=== PATIENT | female | born 1950 | race Caucasian/White ===

== ENCOUNTER → 2016-11-29 | Outpatient (CLI) | payer OTHER, BC ==
[~2016-11-29] MED LIST: ACET-1256 PO; ACET-24 PO; ACYC1CAP8 PO; ASCO10003 PO; ASPEC325 PO; GLUCTAB18 PO; MECL-91 PO; MECL1TAB40 PO; MULT-506 PO; NAPR1TAB9 PO; TRAM-10 PO
[2016-11-29 11:41] LABS: BLOOD UREA NITROGEN 14 mg/dl (7-18); BUN/CREATININE RATIO 15.9 (10-20); CALCIUM 9.4 mg/dl (8.5-10.1); CARBON DIOXIDE 31 mmol/L (21-32); CHLORIDE 104 mmol/L (98-107); CHOLESTEROL 209 mg/dl (0-200); CREATININE 0.88 mg/dl (0.60-1.20); GLUCOSE 112 mg/dl (70-99); POTASSIUM 4.3 mmol/L (3.5-5.1); SODIUM 139 mmol/L (136-145); TRIGLYCERIDES 140 mg/dl (0-150); VERY LOW DENSITY LIPOPROT CALC 28 mg/dl
[2016-11-29 11:44] LABS: CHOLESTEROL/HDL RATIO 3.7; HDL CHOLESTEROL 57 mg/dl
[2016-11-29 12:01] LABS: ESTIMATED AVERAGE GLUCOSE 134 mg/dl; HA1C FLAG Normal (Normal)
== END | disposition home or self-care (01) ==
LOC: C.LAB 10:15
PROVIDERS: ATTEND Internal Medicine
DX: R73.9 Hyperglycemia, unspecified (principal); Z00.00 Encounter for general adult medical examination without abnormal findings

== ENCOUNTER → 2016-11-30 | Outpatient (CLI) | payer OTHER, BC | END | disposition home or self-care (01) | LOC: C.PAPS 12:33 | PROVIDERS: ATTEND Internal Medicine | DX: Z12.4 Encounter for screening for malignant neoplasm of cervix (principal); R87.616 Satisfactory cervical smear but lacking transformation zone; Z78.0 Asymptomatic menopausal state ==

== ENCOUNTER → 2016-12-28 | Outpatient (CLI) | payer OTHER, BC ==
[~2016-12-28] VITALS: Ht 152.4 cm; Wt 85.0 kg
[~2016-12-28] MED LIST changes: +ACYC-57 PO; -ACYC1CAP8 PO; +RXC5 PO
[2016-12-28 11:17] VITALS: Ht 152.4 cm; Wt 85.0 kg
--- NOTE | 2016-12-28 11:45 | PAT Medication Instructions ---
Service Date Dec 28, 2016. Current Home Medication List Meclizine HCl (Meclizine 25), 25 MG PO TID PRN for RN Naproxen (Aleve), 440 MG PO PRN Medication Instructions For Your Scheduled Surgery - Hold the following medications the morning of surgery: Naproxen (Aleve), 440 MG PO PRN (otherwise okay to continue per surgeon) - Take the following medications the morning of surgery with a sip of water OTHERWISE NOTHING TO EAT OR DRINK AFTER MIDNIGHT: Meclizine HCl (Meclizine 25), 25 MG PO TID PRN - Take the following medications as scheduled the night before surgery: Meclizine HCl (Meclizine 25), 25 MG PO TID PRN Naproxen (Aleve), 440 MG PO PRN If you have any questions please call us at [phone] or [phone] or [phone]
--- NOTE | 2016-12-28 12:13 | DIAGNOSTIC IMAGING REPORT ---
CHEST 2 VIEWS ROUTINE CLINICAL HISTORY: Preoperative chest COMPARISON STUDY: 03/11/2009 FINDINGS: The cardiac and mediastinal contours are normal. There is no evidence of focal pulmonary consolidation. There is no evidence of failure. No pleural effusions are visualized.[ IMPRESSION: No active disease in the chest. Electronically signed by: Satnam Valdez M.D. 12/28/2016 12:12 PM Dictated Date/Time: 12/28/2016 12:12 PM
[2016-12-28 12:29] LABS: PARTIAL THROMBOPLASTIN RATIO 0.8; PROTHROMBIN TIME (PATIENT) 10.8 SECONDS (9.0-12.0)
[2016-12-28 12:39] LABS: HEMATOCRIT 37.1 % (37-47); MEAN CELL VOLUME 86.9 fL (80-100); MEAN CORPUSCULAR HEMOGLOBIN 28.6 pg (25-34); MEAN CORPUSCULAR HGB CONC 32.9 g/dl (32-36); PLATELET COUNT 51 K/uL (130-400); RED BLOOD COUNT 4.27 M/uL (4.2-5.4); WHITE BLOOD COUNT 2.34 K/uL (4.8-10.8)
[2016-12-28 12:46] LABS: COMPLETE YES; EOS % 0.9 %; LARGE PLATELETS 1+; LYMPH % 71.8 %; LYMPH ABS # 1.68 K/uL (1.2-3.4); MONO % 0.9 %; NEUT % 26.4 %; PLT ESTIMATE DECREASED
== END | disposition home or self-care (01) ==
LOC: C.LAB 08:00 → EDSTATUS 01-04 12:45
PROVIDERS: ATTEND Orthopaedic Surgery Sports Medicine
DX: Z01.818 Encounter for other preprocedural examination (principal); M17.9 Osteoarthritis of knee, unspecified

== ENCOUNTER → 2016-12-29 | Outpatient (CLI) | payer OTHER, BC ==
[~2016-12-29] MED LIST changes: -ACYC-57 PO; +ACYC1CAP8 PO; -ASCO10003 PO; -GLUCTAB18 PO; -MECL1TAB40 PO; -MULT-506 PO; -RXC5 PO
[2016-12-29 12:45] LABS: ALT/SGPT 21 U/L (12-78); BLOOD UREA NITROGEN 16 mg/dl (7-18); BUN/CREATININE RATIO 18.8 (10-20); CALCIUM 9.7 mg/dl (8.5-10.1); CARBON DIOXIDE 28 mmol/L (21-32); CHLORIDE 109 mmol/L (98-107); CREATININE 0.84 mg/dl (0.60-1.20); GLUCOSE 109 mg/dl (70-99); POTASSIUM 4.1 mmol/L (3.5-5.1); SODIUM 143 mmol/L (136-145)
[2016-12-29 12:48] LABS: ALB/GLOB RATIO 1.2 (0.9-2); ALKALINE PHOSPHATASE 68 U/L (45-117); AST/SGOT 13 U/L (15-37); HEMATOCRIT 36.5 % (37-47); MEAN CELL VOLUME 85.7 fL (80-100); MEAN CORPUSCULAR HEMOGLOBIN 28.4 pg (25-34); MEAN CORPUSCULAR HGB CONC 33.2 g/dl (32-36); MEAN PLATELET VOLUME 9.9 fL (7.4-10.4); PLATELET COUNT 52 K/uL (130-400); RED BLOOD COUNT 4.26 M/uL (4.2-5.4); WHITE BLOOD COUNT 2.59 K/uL (4.8-10.8)
[2016-12-29 13:42] LABS: BASO % 0.4 %; BASO ABS # 0.01 K/uL (0-0.2); COMPLETE YES; EOS % 0.4 %; LYMPH % 76.1 %; LYMPH ABS # 1.97 K/uL (1.2-3.4); MONO % 0.8 %; NEUT % 22.3 %
[2016-12-30 18:03] LABS: ALBUMIN 4.5 G/DL (3.8-4.8); GAMMA GLOBULIN 1.1 G/DL (0.8-1.7); TOTAL PROTEIN 7.3 G/DL (6.2-8.3)
[2017-01-03 05:48] LABS: NEO FLOW LYMPH/LEUK STND SEE NEO MISC
== END | disposition home or self-care (01) ==
LOC: C.LAB 11:04
PROVIDERS: ATTEND Internal Medicine
DX: D72.819 Decreased white blood cell count, unspecified (principal); D69.6 Thrombocytopenia, unspecified

== ENCOUNTER → 2017-01-07 | Outpatient (CLI) | payer OTHER, BC ==
[~2017-01-07] MED LIST changes: +ACYC-57 PO; -ACYC1CAP8 PO; +OPTIRAY 320 IV PRN; +RXC5 PO
--- NOTE | 2017-01-07 16:44 | DIAGNOSTIC IMAGING REPORT ---
CT OF THE CHEST WITH IV CONTRAST CLINICAL HISTORY: Hairy cell leukemia. Follow-up study. COMPARISON STUDY: Chest x-ray dated 12/28/2016 TECHNIQUE: Following the IV administration of 120 mL of Optiray-320, CT of the thorax was performed from the thoracic inlet to the lung bases. Images are reviewed in the axial, sagittal, and coronal planes. IV contrast was administered without complication. CT DOSE: 1126.81 mGycm FINDINGS: Thyroid: Imaged portions of the thyroid gland are normal in appearance. Thoracic aorta: The thoracic aorta is normal in course and caliber, noting standard 3-vessel arch anatomy. No aneurysm or dissection is seen. Pulmonary vasculature: The pulmonary trunk is normal in caliber. There are no central filling defects identified to suggest pulmonary embolus. Note that this examination was not protocoled for the evaluation of pulmonary emboli. HEART: The heart is normal in size and configuration, without pericardial effusion. Lungs and pleural spaces: There are no pleural effusions. There is no focal pulmonary consolidation. There is a 3 mm solid left lower lobe pulmonary nodule as visualized in image #[id number]. Mediastinum: There is no mediastinal lymphadenopathy. Marian: There is no evidence of pathologic hilar adenopathy Axilla: There is no evidence of pathologic axillary lymphadenopathy Upper abdomen: Spleen is enlarged. Skeletal structures: There are no lytic or blastic osseous lesions. IMPRESSION: 1. No evidence of pathologic adenopathy 2. Splenomegaly 3. 3 mm solid left lower lobe pulmonary nodule. Follow-up per Fleischner criteria is recommended. Please refer to below summary of Fleischner criteria recommendations for follow-up of incidental CT nodules (Naeem Howard, Guidelines for management of small pulmonary nodules detected on CT scans: A statement from the Fleischner Society, Radiology 237: [phone].) SOLID NODULES Solitary nodule size: <6 mm * low risk patients: no follow-up needed * high risk patients: optional CT at 12 months Solitary nodule size: 6-8 mm * low risk patients: follow-up at 6-12 months, then consider further follow-up at 18-24 months * high risk patients: initial follow-up CT at 6-12 months and then at 18-24 months if no change Solitary nodule size: >8 mm * either low or high risk patients - consider follow-up CT at 3 months, and/or CT-PET, and/or biopsy Multiple nodules size: <6 mm * low risk patients: no routine follow-up * high risk patients: optional CT at 12 months Multiple nodules size: 6-8 mm * low risk patients: follow-up at 3-6 months, then consider further follow-up at 18-24 months * high risk patients: follow-up at 3-6 months, then at 18-24 months if no change Multiple nodules size: >8 mm * low risk patients: follow-up at 3-6 months, then consider further follow-up at 18-24 months * high risk patients: follow-up at 3-6 months, then at 18-24 months if no change Note: newly detected indeterminate nodule in persons 35 years of age or older. * low risk patients: minimal or absent history of smoking and/or other known risk factors * high risk patients: history of smoking or of other known risk factors (e.g. first degree relative with lung cancer, or exposure to asbestos, radon, uranium) * if a nodule up to 8 mm is partly solid or is ground glass further follow-up is required after 24 months to exclude possible slow growing adenocarcinoma (GRACIA) SUBSOLID NODULES Solitary pure ground-glass nodule * nodule size <6 mm - no CT follow-up required * nodule size >=6 mm - follow-up CT at 6-12 months, then every 2 years until 5 years Solitary part-solid nodule * nodule size <6 mm - no CT follow-up required * nodule size >=6 mm - follow-up CT at 3-6 months. If unchanged, and solid component remains <6 mm, then annual follow-up for 5 years Multiple subsolid nodules * nodule size <6 mm - follow-up CT at 3-6 months, consider further follow-up at 2 and 4 years if stable * nodule size >=6 mm - follow-up CT at 3-6 months, subsequent management based on the most suspicious nodule(s) Electronically signed by: Satnam Valdez M.D. 01/07/2017 4:42 PM Dictated Date/Time: 01/07/2017 4:36 PM
[2017-01-07 16:48] LABS: HEMATOCRIT 37.2 % (37-47); MEAN CELL VOLUME 85.5 fL (80-100); MEAN CORPUSCULAR HEMOGLOBIN 28.3 pg (25-34); MEAN CORPUSCULAR HGB CONC 33.1 g/dl (32-36); PLATELET COUNT 52 K/uL (130-400); RED BLOOD COUNT 4.35 M/uL (4.2-5.4); WHITE BLOOD COUNT 3.03 K/uL (4.8-10.8)
--- NOTE | 2017-01-07 16:52 | DIAGNOSTIC IMAGING REPORT ---
ABDOMEN AND PELVIS CT WITH IV AND ORAL CONTRAST CT DOSE: HISTORY: Leukemia. Follow-up. TECHNIQUE: Multiaxial CT images of the abdomen and pelvis were performed following the use of intravenous and oral contrast. COMPARISON STUDY: None. FINDINGS: The lung bases are clear. No suspicious lytic or blastic osseous lesions. Small hiatus hernia. Hepatic steatosis. Cholecystectomy. The pancreas, adrenal glands, and kidneys are unremarkable. There are few punctate calcified granuloma seen within the spleen. The spleen is enlarged measuring 20 cm in length. No retroperitoneal or mesenteric lymphadenopathy. The bladder, uterus, and ovaries are unremarkable. Colonic diverticulosis. No bowel wall thickening or obstruction. Normal appendix. IMPRESSION: 1. Splenomegaly measuring 20 cm in length. 2. No lymphadenopathy within the abdomen or pelvis. Electronically signed by: Rip Cha M.D. 01/07/2017 4:50 PM Dictated Date/Time: 01/07/2017 4:45 PM
[2017-01-07 18:10] LABS: COMPLETE YES; EOSINOPHIL % 0.9 %; LYMPHOCYTE % 26.3 %; NEUTROPHILS % 24.6 %; VARIANT LYM ABS # 1.41 K/uL; VARIANT LYMPHOCYTE % 46.4 %
== END | disposition home or self-care (01) ==
LOC: C.CTS 15:38
PROVIDERS: ATTEND Internal Medicine Hematology
DX: C91.40 Hairy cell leukemia not having achieved remission (principal); Z01.818 Encounter for other preprocedural examination; R16.1 Splenomegaly, not elsewhere classified; R91.1 Solitary pulmonary nodule

== ENCOUNTER → 2017-03-24 | Outpatient (CLI) | payer OTHER, BC ==
[~2017-03-24] MED LIST changes: -OPTIRAY 320 IV PRN
--- NOTE | 2017-03-24 13:39 | MAMMOGRAPHY REPORT ---
BILATERAL DIGITAL SCREENING MAMMOGRAM WITH CAD: 03/24/2017 CLINICAL HISTORY: Routine screening. Patient has no complaints. TECHNIQUE: Current study was also evaluated with a Computer Aided Detection (CAD) system. Bilateral CC and MLO views were obtained. COMPARISON: Comparison is made to exams dated: 03/22/2016 mammogram, 03/19/2015 mammogram, 03/18/2014 m ammogram, 03/15/2013 mammogram, 03/14/2012 mammogram, and 03/11/2011 mammogram - [facility] nter. BREAST COMPOSITION: There are scattered areas of fibroglandular density in both breasts. FINDINGS: No suspicious masses, calcifications, or areas of architectural distortion are noted in ei ther breast. There has been no significant interval change compared to prior exams. Scattered bilater al benign-appearing calcifications are not significantly changed. IMPRESSION: ACR BI-RADS CATEGORY 2: BENIGN There is no mammographic evidence of malignancy. A 1 year screening mammogram is recommended. The pa tient will receive written notification of the results. Approximately 10% of breast cancers are not detected with mammography. A negative mammographic report should not delay biopsy if a clinically suggestive mass is present. Fe Banuelos M.D. /:03/24/2017 12:39:23 Outer Diameter Technician: Alaina Marcum, [facility] letter sent: Normal 1/2 BI-RADS Code: ACR BI-RADS Category 2: Benign
== END | disposition home or self-care (01) ==
LOC: C.MAMM 10:52
PROVIDERS: ATTEND Internal Medicine
DX: Z12.31 Encounter for screening mammogram for malignant neoplasm of breast (principal)

== ENCOUNTER → 2017-04-08 | Outpatient (CLI) | payer OTHER, BC ==
[~2017-04-08] MED LIST changes: -ACYC-57 PO; +ACYC1CAP8 PO; +ATROPINE SULFATE 0.1 MG/ML 5ML SYR ONE; +DOBUTamine HCL 12.5 MG/ML 20 ML VIAL ONE; +METOPROLOL TARTRATE 1 MG/ML VIAL ONE; -RXC5 PO
--- NOTE | 2017-04-08 20:00 | DOBUTAMINE ECHO ---
*NOTICE TO RECEIVING [employer] AGENCY This information is strictly Confidential and protected under [place] law. [place] law prohibits you from making any further disclosure of this information unless further disclosure is expressly permitted by the written consent of the person to whom it pertains or is authorized by law. A general authorization for the release of medical or other information is not sufficient for this purpose. Hospital accepts no responsibility if the information is made available to any other person, INCLUDING THE PATIENT. Interpretation Summary * Name: VELMA BROWN Study Date: 04/08/2017 09:39 AM BP: 153/95 mmHg * Patient Location: [facility] HR: 92 * : 1950 (M/d/yyyy) Gender: Female Height: 62 in * Age: 66 yrs Ethnicity: [place] Weight: 185 lb * Ordering Physician: Daniel Velazquez * Referring Physician: Daniel Velazquez * Performed By: Denisa Palumbo RDCS * * Reason For Study: Exertional dyspnea * BSA: 1.8 m2 * Normal resting left ventricular systolic function. * Left ventricular diastolic dysfunction. * Normal right ventricular systolic function. * Normal chamber dimensions. * No significant valvular abnormalities. * STRESS STUDY: Normal pharmacologic stress echocardiogram. No echocardiographic or ECG evidence of myocardial ischemia having achieved heart rate adequate for diagnostic purposes. Procedure Details * DOBUTAMINE ECHO, CPT#[id number] * ECHO DOPPLER, CPT #[id number] * ECHO COLOR FLOW, CPT #[id number] * A contrast injection of Definity was performed to improve assessment of LV function. * Contrast was injected into an intravenous site in the central line. * One vial of Definity ultrasound contrast was diluted in normal saline to a total volume of 10 ml. A total of '5' ml of solution was administered during imaging. * Lot # [id number] of Definity utilized for procedure. * Expiration date MAY 20. * The attending nurse who injected the contrast agent was Yvette Rapp RN. Left Ventricle * The left ventricle is normal in size. * There is normal left ventricular wall thickness. * Ejection Fraction = 60-65%. * Left ventricular systolic function is normal. * A full diastolic examination was done with clinical findings of Class I diastolic dysfunction. * Resting wall motion: Normal. Stress wall motion: Appropriate increase in Left ventricular systolic function and decrease in cavity size. No stress induced segmental wall motion abnormalities. * The left ventricular ejection fraction increases normally with stress. The left ventricular end-systolic cavity size reduces post-stress (normal response). The left ventricular wall motion with stress is normal. Right Ventricle * The right ventricle is normal in size and function. * The right ventricular systolic function is normal as assessed by tricuspid annular plane systolic excursion (TAPSE) (normal >1.5 cm). Atria * The left atrial size is normal. * Right atrial size is normal. * No ASD detected; PFO is not assessed. Mitral Valve * The mitral valve is normal. * There is no mitral valve stenosis. * There is no mitral regurgitation noted. Tricuspid Valve * The tricuspid valve is normal. * There is no tricuspid stenosis. * No tricuspid regurgitation. Aortic Valve * The aortic valve is trileaflet. * The aortic valve opens well. * Aortic stenosis is absent. * No aortic regurgitation is present. Pulmonic Valve * The pulmonic valve is not well seen, but is grossly normal. * Pulmonic stenosis is absent. * There is no pulmonic valvular regurgitation. Great Vessels * The aortic root is normal size. Pericardium * There is no pericardial effusion. Stress Parameters * Normal baseline electrocardiogram. * The stress ECG response was normal * Arrhythmia induced during stress: frequent PVC's. * The stress portion of this study was personally supervised by the undersigned interpreting physician. * Rest heart rate was '92' BPM. * Rest blood pressure was '153/95' * Maximum heart rate achieved was 153 bpm. * Maximum heart rate was 100 % of maximum age-predicted heart rate. * Maximum blood pressure was '192/40' * Maximum Dobutamine infusion rate was '40' mcg/kg/min. * Dobutamine infusion was terminated due to achieving target heart rate * A total of 5 mg of IV Metoprolol was administered to reverse Dobutamine-induced tachycardia. * The patient did not exhibit any symptoms during drug infusion. MMode 2D Measurements and Calculations IVSd 1.1 cm LVIDd 3.9 cm LVIDs 2.5 cm LVPWd 0.95 cm IVS/LVPW 1.2 FS 34.2 % EDV(Teich) 64.7 ml ESV(Teich) 23.4 ml EF(Teich) 63.8 % EDV(cubed) 57.9 ml ESV(cubed) 16.5 ml EF(cubed) 71.5 % LV mass(C)d 127.2 grams LV mass(C)dI 68.8 grams/m\S\2 SV(Teich) 41.3 ml SI(Teich) 22.3 ml/m\S\2 SV(cubed) 41.4 ml SI(cubed) 22.4 ml/m\S\2 Ao root diam 3.2 cm Ao root area 7.9 cm\S\2 ACS 1.4 cm LA dimension 2.9 cm asc Aorta Diam 2.9 cm LA/Ao 0.90 LVOT diam 2.0 cm LVOT area 3.0 cm\S\2 LVAd ap4 20.5 cm\S\2 LVLd ap4 6.3 cm EDV(MOD-sp4) 54.3 ml EDV(sp4-el) 56.7 ml LVAs ap4 13.0 cm\S\2 LVLs ap4 6.2 cm ESV(MOD-sp4) 23.5 ml ESV(sp4-el) 23.1 ml EF(MOD-sp4) 56.8 % EF(sp4-el) 59.3 % LVAd ap2 27.4 cm\S\2 LVLd ap2 7.6 cm EDV(MOD-sp2) 81.6 ml EDV(sp2-el) 84.0 ml LVAs ap2 15.7 cm\S\2 LVLs ap2 6.1 cm ESV(MOD-sp2) 34.1 ml ESV(sp2-el) 34.6 ml EF(MOD-sp2) 58.2 % EF(sp2-el) 58.8 % LVLd %diff 16.9 % EDV(MOD-bp) 73.4 ml LVLs %diff -1.92 % ESV(MOD-bp) 27.9 ml EF(MOD-bp) 62.0 % SV(MOD-sp4) 30.8 ml SI(MOD-sp4) 16.7 ml/m\S\2 SV(MOD-sp2) 47.5 ml SI(MOD-sp2) 25.7 ml/m\S\2 SV(MOD-bp) 45.5 ml SI(MOD-bp) 24.6 ml/m\S\2 SV(sp4-el) 33.6 ml SI(sp4-el) 18.2 ml/m\S\2 SV(sp2-el) 49.4 ml SI(sp2-el) 26.7 ml/m\S\2 Doppler Measurements and Calculations MV E max betsy 63.1 cm/sec MV A max betsy 97.5 cm/sec MV E/A 0.65 MV dec time 0.20 sec Ao V2 max 133.0 cm/sec Ao max PG 7.1 mmHg Ao max PG (full) 3.0 mmHg VANITA(V,A) 2.3 cm\S\2 VANITA(V,D) 2.3 cm\S\2 LV V1 max PG 4.1 mmHg LV V1 max 100.9 cm/sec PA V2 max 114.0 cm/sec PA max PG 5.2 mmHg PA acc slope 838.0 cm/sec\S\2 PA acc time 0.08 sec PA pr(Accel) 41.0 mmHg
== END | disposition home or self-care (01) ==
LOC: C.CPL 09:11
PROVIDERS: ATTEND Internal Medicine
DX: R06.89 Other abnormalities of breathing (principal)

== ENCOUNTER 2017-06-17 05:03 | Inpatient (IN) | payer OTHER, BC ==
[2017-05-31 09:15] VITALS: BMI 36.0
--- NOTE | 2017-05-31 09:44 | PAT Medication Instructions ---
Service Date May 31, 2017. Current Home Medication List Acetaminophen (Tylenol), 1,000 MG PO BID Acyclovir (Zovirax), 400 MG PO BID Meclizine HCl (Meclizine 25), 25 MG PO TID PRN for trigonometry teacher Instructions For Your Scheduled Surgery - Take the following medications the morning of surgery with a sip of water: Acetaminophen (Tylenol), 1,000 MG PO BID Acyclovir (Zovirax), 400 MG PO BID Meclizine HCl (Meclizine 25), 25 MG PO TID PRN for RN (if needed) - Take the following medications as scheduled the night before surgery: Acetaminophen (Tylenol), 1,000 MG PO BID Acyclovir (Zovirax), 400 MG PO BID Meclizine HCl (Meclizine 25), 25 MG PO TID PRN for RN (if needed) If you have any questions please call us at [phone] or [phone] or [phone]
[2017-05-31 10:04] LABS: BASO % 0.3 %; BASO ABS # 0.01 K/uL (0-0.2); COMPLETE YES; EOS % 1.3 %; HEMATOCRIT 38.5 % (37-47); IG% 0.5 %; LYMPH % 9.6 %; LYMPH ABS # 0.38 K/uL (1.2-3.4); MEAN CORPUSCULAR HEMOGLOBIN 28.5 pg (25-34); MEAN CORPUSCULAR HGB CONC 33.5 g/dl (32-36); MEAN PLATELET VOLUME 9.6 fL (7.4-10.4); MONO % 4.5 %; NEUT % 83.8 %; PLATELET COUNT 113 K/uL (130-400); RED BLOOD COUNT 4.53 M/uL (4.2-5.4); WHITE BLOOD COUNT 3.96 K/uL (4.8-10.8)
[2017-05-31 10:14] LABS: INR 0.9 (0.9-1.1); PARTIAL THROMBOPLASTIN RATIO 0.9; PROTHROMBIN TIME (PATIENT) 10.1 SECONDS (9.0-12.0)
[2017-05-31 11:11] LABS: BUN/CREATININE RATIO 14.5 (10-20); CALCIUM 9.9 mg/dl (8.5-10.1); CREATININE 0.94 mg/dl (0.60-1.20); POTASSIUM 4.3 mmol/L (3.5-5.1)
--- NOTE | 2017-06-09 13:53 | HISTORY & PHYSICAL EXAMINATION ---
DATE OF ADMISSION: 06/17/2017 CHIEF COMPLAINT: Bilateral knee pain right side greater than left. HISTORY OF PRESENT ILLNESS: The patient is a 67-year-old female who I had scheduled for a left partial knee replacement back in January. Her blood work came back with an elevated white count and she was diagnosed with hairy cell leukemia. She has been treated at [facility] by the road gang supervisor and now been cleared for surgery. Platelets have been a little low but certainly acceptable, greater than 100,000. She has been feeling tired and fatigued but seems to be getting better. She describes pain in both knees. The right side is a bit worse than the left now. The pain is mostly medial. She would like to proceed with a right partial knee replacement if possible. PAST MEDICAL HISTORY: 1. Arthritis. 2. Mild obesity with BMI of 36. 3. Hairy cell leukemia. PAST SURGICAL HISTORY: 1. x2. 2. Cholecystectomy. ALLERGIES: None. CURRENT MEDICINES: Include NSAIDs, acyclovir that she will be off by the time of her surgery. SOCIAL HISTORY: History significant for a 67-year-old female. She is . Medical doctor is Dr. Hall. She is also seen by [facility] road gang supervisor. FAMILY HISTORY: Noncontributory. REVIEW OF SYSTEMS: Negative for diabetes, neurologic problems, vascular problems or bleeding disorders. Her last platelets were 113,000. No bleeding problems. No history of DVT or PE. PHYSICAL EXAMINATION: GENERAL: Reveals a healthy pleasant, middle-aged female. She looks to be in pretty good health. HEAD, EYES, EARS, NOSE, AND THROAT EXAMINATION: Benign. NECK: Supple. No lymphadenopathy. LUNGS: Clear to auscultation. HEART: Regular rate and rhythm. ABDOMEN: Soft, nontender, nondistended. EXTREMITY EXAMINATION: Grossly neurovascularly intact except as follows: Examination of both knees reveals the patient walks with slight varus alignment to her knees. Right side little bit worse than the left. She is tender over the medial joint lines bilaterally. Range of motion is pretty symmetric with about 5 degrees short of full extension to 120 degrees of flexion. No instability. Small knee effusions bilaterally. X-RAYS: X-rays of both knees reveal advanced medial compartment DJD. She has complete loss of medial joint space bilaterally. Everything else looks pretty well preserved. ASSESSMENT: A 67-year-old female with advanced bilateral knee medial compartment disease. She has failed conservative treatment. The right knee is bothering her more than the left. She would like to proceed with a right partial knee replacement. PLAN: We are going to take him to the operating room and do a right partial knee replacement. If we get in there and disease is too bad we will do the full knee. The risks and benefits of partial versus total knee replacement were explained to the patient including but not limited to DVT, PE, , infection, neurological injury, vascular injury, bleeding problem, pain, limited range of motion, stiffness, failure to relieve symptoms, incomplete relief of symptoms, need for further surgery in the future, fracture, leg length inequality, nerve palsy, dislocation, need for revision surgery, etc. The patient understands and desires to proceed. Informed consent was obtained. Of note is that if this patient needs blood transfusion she will need irradiated blood. Her platelet level certainly acceptable at 113,000. She is planning to be discharged to home using [facility] home health program.
[~2017-06-17] VITALS: Ht 154.9 cm; Wt 86.0 kg
[2017-06-17] VITALS (8 sets, daily range): BP systolic 116–149; BP diastolic 74–93; PULSE 90–108; TEMP 36.5–37.1; O2SAT 92–97; Ht 154.9 cm; Wt 86.0 kg
[~2017-06-17 05:03] MED LIST changes: -ACET-24 PO; -ASPEC325 PO; -ATROPINE SULFATE 0.1 MG/ML 5ML SYR ONE; -DOBUTamine HCL 12.5 MG/ML 20 ML VIAL ONE; -METOPROLOL TARTRATE 1 MG/ML VIAL ONE; -NAPR1TAB9 PO; -TRAM-10 PO
[2017-06-17] MEDS ORDERED: FAMOTIDINE 20 MG TAB PO SCH (06:00)
[2017-06-17] MEDS ORDERED: LACTATED RINGER'S 1000ML 500 ML IV ONE (06:00)
[2017-06-17] MEDS ORDERED: CEFAZOLIN 2000 MG/60 ML D5W 60 ML IV SCH (06:00)
[2017-06-17] MEDS ORDERED: METOCLOPRAMIDE HCL 10 MG TAB PO SCH (06:00)
[2017-06-17] MEDS ORDERED: BUPIVACAINE LIPOSOME 266 MG, BUPIVACAINE/EPINEPHRINE INJ 50 ML, SODIUM CHLORIDE 0.9% PF... INFIL SCH ×3 (06:00)
[2017-06-17] MEDS ORDERED: GABAPENTIN 300 MG CAP PO SCH (06:00)
[2017-06-17] MEDS ORDERED: LACTATED RINGER'S 1000ML 1,000 ML IV SCH (06:00)
[2017-06-17] MEDS ORDERED: ACETAMINOPHEN 500 MG TAB PO SCH (06:00)
[2017-06-17] MEDS ORDERED: LACTATED RINGER'S 1000ML IV SCH (06:00)
[2017-06-17] MEDS ORDERED: SCOPOLAMINE 1.5 MG TDSY TD SCH (06:00)
[2017-06-17] MEDS ORDERED: BUPIVACAINE 0.5 % 5 MG/1 ML PF 10ML VIAL ONE (06:32)
[2017-06-17] MEDS ORDERED: BUPIVACAINE 0.25% 30 ML VIAL ONE (06:32)
[2017-06-17] MEDS ORDERED: BUPIVACAINE/EPINEPHRINE 0.25% 1:200,000 30 ML VIAL ONE (06:44)
[2017-06-17] MEDS ORDERED: SODIUM CHLORIDE 0.9% PF 50 ML VIAL ONE (06:44)
[2017-06-17] MEDS ORDERED: MIDAZOLAM HCL 1 MG/ML 2ML VIAL ONE ×2 (06:44→06:56)
[2017-06-17] MEDS ORDERED: FENTANYL CITRATE INJ 50 MCG/1 ML 2 ML VIAL ONE (06:44)
[2017-06-17] MEDS ORDERED: BACITRACIN 50000 UNIT VIAL ONE (06:45)
[2017-06-17] MEDS ORDERED: BUPIVACAINE LIPOSOME 1/3% 266 MG/20 ML VIAL INFIL ONE (06:45)
[2017-06-17] MEDS ORDERED: PROPOFOL IV EMULSION 10 MG/ML 20 ML VIAL IV ONE (06:48)
--- NOTE | 2017-06-17 06:51 | History & Physical Bridge Note ---
H&P Re-Evaluation Bridge Note: I have examined the patient, reviewed the History & Physical and in the interval since the performance of the History & Physical I have noted the following changes of clinical significance: Patient with advanced left knee DJD as well and desires injection into left knee today. Will inject left knee with Celestone and Marcaine. Consent obtained.
[2017-06-17] MEDS ORDERED: BUPIVACAINE 0.5 % 5 MG/1 ML MPF 30ML VIAL ONE (07:11)
[2017-06-17] MEDS ORDERED: BETAMETH SOD PHOS/ACETATE IA 6 MG/ML IA ONE (07:30)
[2017-06-17] MEDS ORDERED: ONDANSETRON INJ 2 MG/ML 2 ML VIAL IV PRN ×2 (08:00→09:00)
[2017-06-17] MEDS ORDERED: ATROPINE SULFATE 0.1 MG/ML 5ML SYR IV PRN (08:00)
[2017-06-17] MEDS ORDERED: EpHEDrine SULFATE INJ 50 MG/ML AMP IV PRN (08:00)
--- NOTE | 2017-06-17 08:58 | [facility] Post Operative Brief Note ---
Immediate Operative Summary Operative Date Jun 17, 2017. Pre-Operative Diagnosis Advanced Bilateral Knee Medial Compartment DJD Post-Operative Diagnosis Same as preoperative Procedure(s) Performed Right Knee Arthroplasty Uni Compartment; Left Knee Injection Surgeon Dr. Ramon Strange Machine Joiner Cementer Surgeon(s) Kike Cohen PA-C Estimated Blood Loss 20ml Findings Bilateral Knee DJD Fluids (cc crystalloids) 1800 cc Specimens A.) Right Knee Bone and Tissue Drains None Anesthesia Spinal Complication(s) None Disposition Recovery Room / PACU
[2017-06-17] MEDS ORDERED: MAGNESIUM HYDROXIDE SUSP 30 ML UDC PO PRN (09:00)
[2017-06-17] MEDS ORDERED: MECLIZINE HCL 25 MG TAB PO PRN (09:00)
[2017-06-17] MEDS ORDERED: MoRPHine SULFATE 2 MG/ML CARP IV PRN (09:00)
[2017-06-17] MEDS ORDERED: ALUMINUM/MAGNESIUM/SIMETH (MAALOX MAX) 30 ML UDC PO PRN (09:00)
[2017-06-17] MEDS ORDERED: ZOLPIDEM TARTRATE 5 MG TAB PO PRN (09:00)
[2017-06-17] MEDS ORDERED: BISACODYL 10 MG SUPP PR PRN (09:00)
[2017-06-17] MEDS: ACYCLOVIR 200 MG CAP PO SCH ×3 (09:00→21:47)
[2017-06-17] MEDS: MULTIVITAMIN TAB PO SCH (09:00)
[2017-06-17] MEDS ORDERED: DiphenhydrAMINE HCL 50 MG/ML VIAL IV PRN (09:00)
[2017-06-17] MEDS ORDERED: METOCLOPRAMIDE HCL INJ 5 MG/ML 2 ML VIAL IV PRN (09:00)
[2017-06-17] MEDS ORDERED: OXYCODONE HCL IR 5 MG TAB (IMMEDIATE RELEASE) PO PRN (09:00)
--- NOTE | 2017-06-17 09:35 | Anesthesiology Progress Note ---
Anesthesia Post Op Note Date & Time Jun 17, 2017 at 09:35 Vital Signs Pain Intensity: 0 Vital Signs Past 12 Hours Date Time Temp Pulse Resp B/P (MAP) Pulse Ox O2 Delivery O2 Flow Rate FiO2 06/17/17 09:30 94 23 127/81 100 Oxymask 10 06/17/17 09:20 91 21 133/78 100 Oxymask 10 06/17/17 09:10 96 21 93/75 100 Oxymask 10 06/17/17 09:03 36.1 96 12 120/70 100 Oxymask 10 06/17/17 05:45 36.9 96 20 144/93 97 Room Air Notes Mental Status: alert / awake / arousable, participated in evaluation Pt Amnestic to Procedure: Yes Nausea / Vomiting: adequately controlled Pain: adequately controlled Airway Patency, RR, SpO2: stable & adequate BP & HR: stable & adequate Hydration State: stable & adequate Anesthetic Complications: no major complications apparent
--- NOTE | 2017-06-17 09:40 | DIAGNOSTIC IMAGING REPORT ---
RIGHT KNEE 2 VIEWS History: Right unicondylar knee arthroplasty. Degenerative arthritis. Postop. FINDINGS: The patient is status post a right medial unicondylar knee arthroplasty. The hardware is intact. Curvilinear lucency within the medial distal shaft of the right femur. This favors overlapping gas. However, this is also demonstrated on the lateral view.. Skin bradley are in place. IMPRESSION: Curvilinear lucency within the medial distal shaft of the right femur. This favors overlapping gas. However, this is also demonstrated on the lateral view. Therefore, repeat dedicated right knee radiograph is recommended once the patient is stabilized to exclude the possibility of a nondisplaced fracture. Electronically signed by: Rip Cha M.D. 06/17/2017 9:38 AM Dictated Date/Time: 06/17/2017 9:34 AM
--- NOTE | 2017-06-17 09:47 | OPERATIVE REPORT ---
DATE OF OPERATION: 06/17/2017 SURGEON: Ramon Strange MD SUPERVISOR PHOSPHORIC ACID: CLARISSA Pink PREOPERATIVE DIAGNOSIS: Bilateral knee degenerative joint disease. POSTOPERATIVE DIAGNOSIS: Same. PROCEDURES PERFORMED: 1. Right Biomet [place] mobile-bearing partial knee replacement. 2. Left knee injection. COMPLICATIONS: None. ESTIMATED BLOOD LOSS: 20 mL. TOURNIQUET TIME: 68 minutes at 300 mmHg. FLUID REPLACEMENT: 1800 mL crystalloid fluid replacement. ANESTHESIA: Spinal with adductor canal block. DRAINS: None. SPECIMENS: Right knee sent for pathology. OPERATIVE INDICATIONS: The patient is a 67-year-old female who has had a fairly long history of bilateral knee pain and discomfort that has become less responsive to conservative care. 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 She had been treated for this and now cleared for surgery. She has got advanced DJD. She elected to proceed with right partial knee replacement. She also has advanced to the left knee DJD and wanting the left knee injection. OPERATIVE FINDINGS: Operative findings revealed advanced right knee DJD. She had extensive grade 4 changes of the medial femoral condyle and medial tibial plateau. The lateral and patellofemoral compartments were fairly well preserved. She had a fixed varus deformity to knee. Moderate-sized knee effusion. She does also have left knee degenerative joint disease. OPERATIVE IMPLANTS: Operative implants consisted of: 1. Biomet [place] size small femoral component. 2. Biomet size A right medial tibial tray. 3. A 4-mm mobile-bearing polyethylene insert. OPERATIVE PROCEDURE: The patient was taken to the operating room, identified and placed on the operating table in the supine position. All contact areas were appropriately padded. IV antibiotics were provided by the anesthesia team. A spinal anesthetic and adductor canal block had been provided in the holding area. Marroquin catheter was placed in sterile fashion. Right thigh tourniquet was then placed and the right lower extremity was then prepped and draped in the usual sterile fashion. The right leg was elevated and exsanguinated with Esmarch and tourniquet was placed at 300 mmHg. An anterior approach to the knee was then performed through a longitudinal incision beginning at the superior pole of the patella and extending just medial to the tibial tubercle. Sharp dissection was carried through the subcutaneous tissues down to the level of the extensor mechanism. A medial parapatellar arthrotomy incision was made. The fat pad was resected. Some subperiosteal dissection was carried out medially, taking great care to protect the MCL ligament. I then examined the knee. The ACL and PCL were intact. The lateral compartment and patellofemoral compartment were adequately preserved. We elected to proceed with a right partial knee replacement. The femur was then sized to a size small. The osteophytes were taken off the intercondylar notch area. The external tibial alignment jig was then placed in the anterior face of the tibia and adjusted to the small spoon with the 4G clamp. Proximal tibial cut was made. The tibia was sized to a size A. The size B was just a little bit big for this patient. The attention was then drawn to the distal femur. The distal femur was entered with a sharp drill. Intramedullary alverto was placed. A small femoral guide was then attached to the intramedullary alverto and the holes were drilled for the femoral component. The posterior cutting guide was placed. The posterior cut was made. The 0 spigot was used and the distal femur was milled. We then trialed the knee and the 4 insert fit appropriately in flexion and the 1 in extension. The 3 spigot was then used and the distal femur was milled. We then trialed the knee again and the 4 feeler gauge fit appropriately in both flexion and extension. I then placed the posterior osteophyte cutting guide and removed the posterior osteophyte and also created the anterior relief area for the femoral component. The cement drill was used to drill some holes in the femur for cement interdigitation. The medial meniscus had been previously removed. The tibial tray was then pinned and the toothbrush blade saw we used to create the keel for the tibial tray. The wound was then irrigated. I then trialed the knee and the 4 insert fit most appropriately. We elected to use these implants. All trial implants were removed. I irrigated the wound extensively. I did inject locally with 100 mL of a combination of 20 mL of Exparel, 30 mL of normal saline, and 50 mL of 0.25% Marcaine with epinephrine. A single batch of [place] G cement was mixed. A right medial size A tibial tray was then cemented in place followed by a small femoral component. The 5 feeler gauge was then placed to pressurize the knee and the knee was brought out to about 30 degrees of short of full extension. All extraneous cement was removed. The knee was held until cement hardened. We then trialed the knee and the 4 insert fit most appropriately. We elected to place this insert. The wound was once again irrigated. The 4-mm permanent insert was then placed. The knee was stable. The wound was once again irrigated. The tourniquet was then let down for a tourniquet time of 68 minutes. Hemostasis was assured with the use of electrocautery. The extensor mechanism was then closed with #1 Vicryl suture in a [id number] fashion. The subcutaneous tissues were then closed with 2-0 Dexon suture in a buried interrupted fashion. Skin was closed skin bradley. Leg was then cleaned and dried and a sterile dressing of Xeroform, 4 x 4, sterile cast padding and Soto bandage were applied. The left knee was then prepped with alcohol. I then injected the left knee with 2 mL of Celestone and 8 mL of Marcaine. Some 4 x 4 sponges were applied followed by a VICENTE stocking. The patient then transferred to the recovery room in stable condition. The patient tolerated the procedure well with no complications. All needle and sponge counts were correct at the end of the operation. I attest to the content of the Intraoperative Record and any orders documented therein. Any exception s are noted below.
--- NOTE | 2017-06-17 10:59 | DIAGNOSTIC IMAGING REPORT ---
RIGHT KNEE 1 OR 2 VIEWS ROUTINE CLINICAL HISTORY: Right knee arthroplasty. COMPARISON: Knee radiographs May 12, 2017 and right knee radiographs performed earlier today. FINDINGS: There are postsurgical findings consistent with a medial compartment arthroplasty of the right knee. There are skin bradley. There is an acute nondisplaced fracture of the medial distal shaft of the right femur. No additional fractures are identified on this examination. IMPRESSION: 1. Acute nondisplaced fracture of the medial distal shaft of the right femur. 2. Status post medial compartment arthroplasty of the right knee. Hardware intact. Electronically signed by: Regino Wheat M.D. 06/17/2017 10:58 AM Dictated Date/Time: 06/17/2017 10:28 AM
[2017-06-17] MEDS: D5W AND 1/2NSS + 20MEQ KCL 1,000 ML IV SCH ×2 (13:23→21:47)
[2017-06-17] MEDS: KETOROLAC TROMETHAMINE 15 MG/ML VIAL IV. SCH ×3 (13:24→23:40)
[2017-06-17] MEDS: ACETAMINOPHEN 500 MG TAB PO SCH ×2 (13:25→21:47)
--- NOTE | 2017-06-17 15:08 | DIAGNOSTIC IMAGING REPORT ---
CT OF THE RIGHT KNEE WITHOUT CONTRAST CLINICAL HISTORY: Right Uni-knee with Fracture. COMPARISON STUDY: Right knee radiographs June 17, 2017 at 10:10 AM. TECHNIQUE: Axial images of the right knee were obtained without IV contrast. Sagittal and coronal reconstructions were viewed. FINDINGS: There are postsurgical findings consistent with a medial compartment arthroplasty of the right knee. The hardware is intact. As expected, there is soft tissue gas and fluid. There are skin bradley. No unexpected radiopaque foreign bodies are identified on this examination. Note is made of a slightly distracted fracture of the medial distal shaft of the right femur. Fracture is distracted 2 mm. This fracture is at the level of a surgical tract. No additional fractures are identified on this examination. Patellar alignment appears anatomic. IMPRESSION: 1. Acute slightly distracted fracture of the medial distal shaft of the right femur at the level of a drill tract. 2. Status post medial compartment arthroplasty of the right knee. Hardware intact. No unexpected radiopaque foreign body. Electronically signed by: Regino Wheat M.D. 06/17/2017 3:06 PM Dictated Date/Time: 06/17/2017 2:58 PM
--- NOTE | 2017-06-17 15:59 | PROGRESS NOTE ---
DATE: 06/17/2017 DATE: 06/17/2017 SUBJECTIVE: A 67-year-old white female postop from a right partial knee replacement. She is doing well. Just starting to get pain. No chest pain or shortness of breath. OBJECTIVE: VITAL SIGNS: Temperature is 36.9. Vital signs stable. PHYSICAL EXAMINATION: GENERAL: Reveals a healthy pleasant, middle-aged female. She is sitting up in bed and talking to her and she looks comfortable. LUNGS: Clear to auscultation. HEART: Regular rate and rhythm. ABDOMEN: Soft, nontender, nondistended. EXTREMITY EXAMINATION: Grossly neurovascularly intact except as follows: Examination of the right leg reveals immobilizer to be in place. The dressing is clean, dry and intact. She can dorsiflex and plantarflex her foot appropriately. She is neurologically intact. X-RAYS: X-rays of the right knee from recovery room were reviewed. With multiple views patient has a partial knee replacement. The tibial tray looks to be in good position. The femoral component is a little bit rotated and there is a fracture the medial aspect of the metaphysis. On further review this is likely related to penetration of the intramedullary guide through the medial aspect of the femur on implantation and therefore accounts for the malrotation of the femoral component as well. The severity of this fracture is difficult to assess. ASSESSMENT: A 67-year-old white female postop from a right partial knee replacement, doing pretty well. She is neurologically intact. There has clearly been breaching of the medial cortex of the distal metaphyseal region of the femur, likely related to the IM guide. This certainly accounts for the fracture and the malalignment of the femoral component. Tibial tray looks good. It is very difficult to assess the severity of this fracture. It was not appreciated intraoperatively and there was no suspicion of this intraoperatively. PLAN: In light of the above findings we are going to put her in a knee immobilizer and hold on therapy for now. We are going to get a CT scan to better define the fracture and determine whether we can begin range of motion, begin weightbearing, versus required to proceed with further surgical intervention to stabilize her femur. In the meantime, we will continue DVT prophylaxis including thigh-high TEDs, SCDs, and aspirin. We will continue current pain regimen. We will continue 24 hours of IV antibiotics. Will get a CT scan and therapy will be based on that.
[2017-06-17] MEDS: CHECK SCOPOLAMINE PATCH PLACEMENT SCH ×2 (16:26→23:40)
[2017-06-17] MEDS: CEFAZOLIN IV 2,000 MG in DEXTROSE 5% 50ML 50 ML IV SCH ×2 (16:26→23:41)
--- NOTE | 2017-06-17 18:08 | PROGRESS NOTE ---
DATE: 06/17/2017 SUBJECTIVE: Kiesha Triana got back from CT scan earlier this afternoon. She continues to be relatively comfortable, just starting to have some pain. I did review her CT scan. It shows evidence of a small cortical perforation of the medial distal femur at the junction of the diaphysis to the metaphysis. This is clearly related to the intramedullary guide, which exited at this point. It is a fairly small fractured area and is not completely through the bone and does not extend down the bone. I do think this may weaken the bone slightly but does not disrupt the mechanical integrity of bone such that we need to change her therapy to a large degree. ASSESSMENT: Postoperative from a right partial knee replacement with cortical perforation at the metaphyseal diaphyseal junction from the intramedullary alverto. She does have slight malalignment of the femoral component, but this implant can tolerate up to 15 degrees of malalignment and I think she will have an acceptable outcome from this and it does not warrant changing. I do not think the structural integrity of bone is dangerously violated and I think we can discontinue her knee immobilizer. PLAN: We are going to keep her 50% weightbearing for the first 2 weeks and just see how she does from that standpoint. I think this is probably a little over cautious but I think it is better to play it safe from that standpoint. We will continue DVT prophylaxis. We will discontinue use of the knee immobilizer. We will resume therapy limiting the flexion at 90 degrees currently for the first 2 weeks and 50% weightbearing right leg. I did have an in-depth discussion with the patient as well as her regarding this and they were understanding. ROYER
[2017-06-17] MEDS ORDERED: SENNA 8.6 MG TAB PO SCH (21:00)
[2017-06-17] MEDS: TAPENTADOL ER 50 MG TABCR PO SCH (21:46)
[2017-06-17] MEDS: DOCUSATE SODIUM 100 MG CAP PO SCH (21:46)
[2017-06-17] MEDS: ASPIRIN 325 MG ECTAB PO SCH (21:46)
[2017-06-18 02:45] VITALS: BP 130/77; PULSE 91; TEMP 36.8; O2SAT 96
[2017-06-18] MEDS: KETOROLAC TROMETHAMINE 15 MG/ML VIAL IV. SCH (05:33)
[2017-06-18] MEDS: ACETAMINOPHEN 500 MG TAB PO SCH (05:34)
[2017-06-18 05:56] LABS: HEMATOCRIT 33.3 % (37-47); MEAN CELL VOLUME 84.7 fL (80-100); MEAN CORPUSCULAR HEMOGLOBIN 27.5 pg (25-34); MEAN CORPUSCULAR HGB CONC 32.4 g/dl (32-36); MEAN PLATELET VOLUME 10.1 fL (7.4-10.4); PLATELET COUNT 121 K/uL (130-400); RED BLOOD COUNT 3.93 M/uL (4.2-5.4); WHITE BLOOD COUNT 9.15 K/uL (4.8-10.8)
[2017-06-18 06:27] LABS: BUN/CREATININE RATIO 10.9 (10-20); CALCIUM 9.1 mg/dl (8.5-10.1); CREATININE 1.1 mg/dl (0.60-1.20); POTASSIUM 4.5 mmol/L (3.5-5.1)
[2017-06-18 07:32] VITALS: BP 132/80; PULSE 96; TEMP 36.5; O2SAT 100
[2017-06-18] MEDS: D5W AND 1/2NSS + 20MEQ KCL 1,000 ML IV SCH (08:15)
[2017-06-18] MEDS ORDERED: TRAM-10 PO (08:18)
[2017-06-18] MEDS ORDERED: ASPEC325 PO (08:18)
[2017-06-18] MEDS ORDERED: ACET-24 PO (08:18)
--- NOTE | 2017-06-18 08:22 | Discharge Instructions ---
Discharge Instructions Date of Service Jun 18, 2017. Admission Reason for Admission: Right Knee Degenerative Joint Disease, Knee Pain Discharge Discharge Diagnosis / Problem: Right Partial Knee Replacement Discharge Goals Goal(s): Decrease discomfort, Improve function, Increase independence, Improve disease control, Therapeutic intervention Activity Recommendations Activity Limitations: per Instructions/Follow-up section Weightbearing Status: Right partial . Instructions / Follow-Up Instructions / Follow-Up ACTIVITY RECOMMENDATIONS: Physical Therapy: * You will go to physical therapy three times each week for four to six weeks after your surgery in order to regain your knee range of motion and to retrain your knee to work properly. * It is just as important to make sure you are getting your knee perfectly straight as it is to regain your knee bend. * Taking a pain pill an hour before therapy can help you have a more productive and comfortable therapy session. Home Exercise: * You were shown a series of exercises (heel props, heel slides, etc.) in the hospital. Do these exercises three to four times each day including the exercises you were shown in physical therapy. Walking: * Get up and walk several times each day. For the first four weeks, try not to stand or walk for more than one hour at a time. If you do stand or walk for more than one hour, you will not hurt anything, but your knee and leg will likely swell. * As you feel comfortable, you may change from the walker or crutches to a cane and then to independent walking. MEDICATIONS: New Medicine: * You will likely be taking one or more of these medications: 1. Tramadol - A quick and shorter-acting pain medication. Take one to two tablets every four to six hours to lessen your pain. 2. Aspirin - Thins your blood to lessen the chance of forming a blood clot. * The most common side effects of pain medicine and iron are nausea and constipation. If nausea or constipation is too much of a problem or if you have any questions about your new medicines or doses, call [facility] at . We will try to help you manage these issues. VERY IMPORTANT TO READ AND REVIEW" Pain: * The immediate post-operative period after knee replacement surgery is often quite painful. * You are given a prescription for pain medicine. You should take it, as directed, when you need it, especially before physical therapy and before going to bed. Pain that interferes with sleep is very common and can last several months. * You will likely need pain medicine for the first four to six weeks. It will not stop all of the pain. The pain will lessen and as you feel better, you may change to milder pain medicine such as Tylenol. * The most common side effects of pain medicine are nausea and constipation, so don't take more than you need. SPECIAL CARE INSTRUCTIONS: TEDs/Elastic Stockings: * The white elastic stockings help limit swelling and prevent blood clots from forming in your legs. The more you wear them, the more they work. * Wear them for six weeks after knee replacement surgery and four weeks after partial knee replacement. Prevention of Infection: * Take antibiotics one hour before any dental cleaning, dental work, urological procedure, gastrointestinal procedure or any invasive surgery in order to prevent your new joint from getting infected. * You may get the antibiotics from the doctor performing the procedure or you may call our office at before and we will call in a prescription to the pharmacy of your choice. Things to Watch For: * Drainage from the incision site that occurs more than one week after your surgery. * Severely increased knee/leg pain or swelling. * Increased redness at the incision site. * Fever above 102 degrees Fahrenheit. * Unusual chest pain or shortness of breath. * Unusual pain or burning with urination. Call [facility] at with any of the above problems or if you have any questions about your medicines or recovery. FOLLOW UP VISIT: Make an appointment to see your doctor for approximately two weeks after surgery for a progress check and staple removal by calling the office at . Current Hospital Diet Patient's current hospital diet: Regular Diet Discharge Diet Recommended Diet: Regular Diet Procedures Procedures Performed: Right Knee Arthroplasty Uni Compartment; Left Knee Injection Pending Studies Studies pending at discharge: no Medical Emergencies . Who to Call and When: Medical Emergencies: If at any time you feel your situation is an emergency, please call [phone] immediately. . Non-Emergent Contact Non-Emergency issues call your: Surgeon . "Provider Documentation" section prepared by Ramon Strange. . VTE Core Measure Inpt VTE Proph given/why not?: Other Anticoagulation, T.E.D. Stockings, SCD's
[2017-06-18] MEDS: CHECK SCOPOLAMINE PATCH PLACEMENT SCH (08:27)
--- NOTE | 2017-06-18 08:28 | PROGRESS NOTE ---
DATE: 06/18/2017 SUBJECTIVE: A 67-year-old white female postop day 1 from a right partial knee replacement. She is doing well. Reports no significant pain. Anxious to go home. No chest pain or shortness of breath. Not feeling dizzy or lightheaded. OBJECTIVE: VITAL SIGNS: Temperature 36.5. Vital signs stable. GENERAL: Physical examination reveals a healthy, pleasant middle-aged female. She is sitting up in bed and looks pretty comfortable. EXTREMITIES: Examination of the right leg reveals the dressing to be clean, dry and intact. Leg is well aligned. She can dorsiflex and plantarflex her foot appropriately. She can do a good straight leg raise. She is neurologically intact. LABORATORY DATA: Hemoglobin 10.8. Hematocrit 33.3. Electrolytes are stable. ASSESSMENT: A 67-year-old white female postop day 1 from a right partial knee replacement, complicated by a small crack in the medial aspect of her femur due to the IM guide. It was very localized hole, very similar to a drill hole and not a fracture through the bone. Her pain is controlled. I do not think this is significantly affects the structural integrity of her femur. PLAN: 1. DVT prophylaxis including thigh-high TEDs, SCDs, and aspirin twice a day. 2. PT and OT. We are going to keep her 50% weightbearing for the next 2 weeks. We will limit knee motion to 0-90 degrees for 2 weeks. 3. Pain control, doing well with current pain management. 4. Disposition: Plan to discharge to home with some home health as she does well in therapy today.
[2017-06-18] MEDS: TAPENTADOL ER 50 MG TABCR PO SCH (08:34)
[2017-06-18] MEDS: MULTIVITAMIN TAB PO SCH (08:34)
[2017-06-18] MEDS: DOCUSATE SODIUM 100 MG CAP PO SCH (08:35)
[2017-06-18] MEDS: ASPIRIN 325 MG ECTAB PO SCH (08:35)
[2017-06-18] MEDS: ACYCLOVIR 200 MG CAP PO SCH (08:36)
[2017-06-18] MEDS ORDERED: PANTOprazole SOD 40 MG TAB PO SCH (09:00)
[2017-06-18 09:37] VITALS: BP 132/80; PULSE 96; TEMP 36.5; O2SAT 100
--- NOTE | 2017-06-23 00:10 | DISCHARGE SUMMARY ---
ADMITTING PHYSICIAN AND SURGEON: Dr. Strange. ADMITTING DIAGNOSIS: Bilateral knee degenerative joint disease. PROCEDURES PERFORMED: 1. Right partial knee replacement. 2. Left knee injection. SECONDARY DIAGNOSES: Arthritis, mild obesity and hairy cell leukemia. CONSULTS: None obtained. HISTORY AND PHYSICAL EXAMINATION: Well documented in the patient's chart. HOSPITAL COURSE: The patient was admitted on 06/17/2017 underwent partial knee replacement as well as an injection to her left knee. There were no intraoperative complications noted. She was transferred to PACU. X-rays were obtained in PACU and she was found to have a cortical perforation in the medial distal femur intramedullary guide placement during surgery. She was transferred to the orthopedic floor for further care. She was initially placed in a knee immobilizer at that time. She was given Ancef for antibiotic prophylaxis, VICENTE stockings, SCDs and aspirin for DVT prophylaxis. Hemoglobin, hematocrit and vital signs were monitored during her hospital stay and remained stable. She did develop some postoperative anemia with hemoglobin down to 10.8 and did not require any blood transfusions. There were no further complications. By postoperative day 1, she was tolerating a general diet, pain was controlled with oral pain medicine. She was participating in physical therapy and had no signs or symptoms of deep vein thrombosis. On postop day #1, she was discharged home and set up with home health services. She was given printed discharge instructions including new prescriptions for extra strength Tylenol, aspirin 325 mg b.i.d. and tramadol. Continue her home medicines with the exception of her home dose of Tylenol, which was changed. She will continue physical therapy. She is to be about 50% partial weightbearing on the right lower extremity for the first 2 weeks postoperatively and limit her knee range of motion from about 0-90 degrees first 2 weeks. The knee immobilizer was discontinued. Continue VICENTE stockings. She will follow up with Dr. Strange in 10-12 days or sooner if there are any problems or concerns.
[2017-07-14] MEDS ORDERED: ACET-1256 PO (11:21)
== END 2017-06-18 11:33 | disposition home health service (06) | DRG 470 ==
LOC: C.ACU 05:03 → C.3E 06:41 → ENRESERV 09:19
PROVIDERS: ADMIT Orthopaedic Surgery Sports Medicine; ATTEND Orthopaedic Surgery Sports Medicine
PROC: 0SRV0J9 Replacement of Right Knee Joint, Tibial Surface with Synthetic Substitute, Cemented, Open Approach (ICD-10-PCS; principal; 2017-06-17 07:00)
PROC: 3E0U3BZ Introduction of Anesthetic Agent into Joints, Percutaneous Approach (ICD-10-PCS; principal; 2017-06-17 07:00)
PROC: 0SRT0J9 Replacement of Right Knee Joint, Femoral Surface with Synthetic Substitute, Cemented, Open Approach (ICD-10-PCS; principal; 2017-06-17 07:00)
PROC: 3E0U33Z Introduction of Anti-inflammatory into Joints, Percutaneous Approach (ICD-10-PCS; principal; 2017-06-17 07:00)
DX: M17.0 Bilateral primary osteoarthritis of knee (principal); M96.661 Fracture of femur following insertion of orthopedic implant, joint prosthesis, or bone plate, right leg; C91.40 Hairy cell leukemia not having achieved remission; Y83.4 Other reconstructive surgery as the cause of abnormal reaction of the patient, or of later complication, without mention of misadventure at the time of the procedure; Y79.3 Surgical instruments, materials and orthopedic devices (including sutures) associated with adverse incidents; E66.9 Obesity, unspecified; R42 Dizziness and giddiness; M26.609 Unspecified temporomandibular joint disorder, unspecified side; M21.161 Varus deformity, not elsewhere classified, right knee; M25.461 Effusion, right knee; Z68.36 Body mass index [BMI] 36.0-36.9, adult; Z79.1 Long term (current) use of non-steroidal anti-inflammatories (NSAID); Z79.899 Other long term (current) drug therapy

== ENCOUNTER → 2017-07-28 | Outpatient (CLI) | payer OTHER, BC ==
[~2017-07-28] MED LIST changes: +ACET-24 PO; -ACYC1CAP8 PO; +ASPEC325 PO; +RXC5 PO; +TRAM-10 PO
--- NOTE | 2017-07-28 10:50 | DIAGNOSTIC IMAGING REPORT ---
ABDOMEN LIMITED (US) HISTORY: Leukemia. Splenic enlargement. HAIRY CELL LEUKEMIA, NOT HAVING ACHIEVED REMISSION. COMPARISON: CT 01/07/2017 FINDINGS: Spleen is diminished in size compared to the prior studies and currently has a maximum linear dimension 13 cm. This is improved from the prior dimension of 20 cm. Echogenicity is uniform. There are no abnormal perisplenic fluid collections. IMPRESSION: Improved exam of the spleen now measuring 13 cm in greatest dimension. Improved from the prior maximum dimension of 20 cm The above report was generated using voice recognition software. It may contain grammatical, syntax or spelling errors. Electronically signed by: Tyler Lopez M.D. 07/28/2017 10:49 AM Dictated Date/Time: 07/28/2017 10:47 AM
== END | disposition home or self-care (01) ==
LOC: C.ULTRBC 10:20
PROVIDERS: ATTEND Internal Medicine Hematology
DX: C91.40 Hairy cell leukemia not having achieved remission (principal)

== ENCOUNTER 2017-08-02 06:25 | Inpatient (IN) | payer OTHER, BC ==
[2017-07-14 11:22] VITALS: BMI 35.0
[2017-07-26 13:30] LABS: PROTHROMBIN TIME (PATIENT) 10.7 SECONDS (9.0-12.0)
[2017-07-26 13:44] LABS: C-REACTIVE PROTEIN 3.92 mg/dl (0-0.29); CALCIUM 9.5 mg/dl (8.5-10.1); CREATININE 0.85 mg/dl (0.60-1.20); POTASSIUM 3.9 mmol/L (3.5-5.1)
--- NOTE | 2017-07-30 11:08 | HISTORY & PHYSICAL EXAMINATION ---
DATE OF ADMISSION: 08/02/2017 CHIEF COMPLAINT: Left knee pain. HISTORY OF PRESENT ILLNESS: The patient is a 67-year-old female who has had a long history of bilateral knee pain and discomfort. She has been managed by my partner Dr. Ahuja over the past several years. This conservative care has failed over time. She has been through extensive conservative treatment including oral medicines as well as steroid shots and viscosupplementation. 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 This has now been under control. She underwent a right partial knee replacement back in June 17. She has done well from this and would like to proceed with a left knee arthroplasty. She is hoping to do a partial knee replacement. Pain is mostly in the medial side of her knee. It is increased with weightbearing. PAST MEDICAL HISTORY: 1. Arthritis. 2. Obesity with a BMI of 35. 3. Hairy cell leukemia, currently in remission. PAST SURGICAL HISTORY: 1. x2. 2. Cholecystectomy. 3. Right partial knee replacement done on 06/17/2017. ALLERGIES: None. CURRENT MEDICATIONS: 1. Tylenol. 2. Advil/Aleve. SOCIAL HISTORY: A 67-year-old female. She is . She is a patient of Dr. Hall. FAMILY HISTORY: Noncontributory. REVIEW OF SYSTEMS: Negative for diabetes, neurologic problems, vascular problems, or bleeding disorders. Denies any chest pain. No shortness of breath. No evidence of DVT or PE. No bleeding problems. PHYSICAL EXAMINATION: GENERAL: Reveals a healthy, pleasant middle-aged female. Looks to be in pretty good health. HEENT: Benign. NECK: Supple. No lymphadenopathy. LUNGS: Clear to auscultation. HEART: Regular rate and rhythm. ABDOMEN: Soft, nontender, and nondistended. EXTREMITIES: Grossly neurovascularly intact except as follows: Examination of the left knee reveals the patient ambulates fairly normally. She got slight varus alignment to the knee. She has a small knee effusion. She is tender over the medial joint line. Range of motion is 5-120. No instability. Examination of the right knee reveals a well-healed incision. Fairly minimal swelling. Range of motion is 0-120. Good straight leg raise. X-RAYS: X-rays of the left knee were reviewed. It shows advanced left knee medial compartment DJD. She has complete loss of her medial joint space. Not quite as bad as the right knee was. It does open up on stress testing. ASSESSMENT: A 67-year-old female now 6 weeks out from a right partial knee replacement with left knee medial compartment degenerative joint disease. She is pretty happy with the right knee and would like to proceed with a left partial knee replacement if possible. PLAN: We are going to take her to the operating room and do a left partial knee replacement. If we get in there and her disease is too bad, we will do a full knee replacement. The risks and benefits of this procedure were explained to the patient including, but not limited to DVT, PE, , infection, neurological injury, vascular injury, bleeding problem, pain, limited range of motion, stiffness, failure to relieve symptoms, incomplete relief of symptoms, need for further surgery in the future, fracture, leg length inequality, nerve palsy, etc. The patient understands and desires to proceed. Informed consent was obtained. Her blood count was checked in her [facility] and was within normal limits, even just 2 weeks out from surgery. We will proceed with partial versus full knee replacement as described above. She is planning to be discharged to home using [facility] home health program.
[2017-08-02] VITALS (8 sets, daily range): BP systolic 108–152; BP diastolic 68–96; PULSE 75–107; TEMP 36.5–37.5; O2SAT 95–97; Ht 154.9 cm; Wt 83.2 kg
[~2017-08-02] VITALS: Ht 154.9 cm; Wt 83.2 kg
[~2017-08-02 06:25] MED LIST changes: -ACET-24 PO; +ACETAMINOPHEN 500 MG TAB PO SCH; -ASPEC325 PO; +CEFAZOLIN 2000MG IV PUSH 10 ML IV SCH; +FAMOTIDINE 20 MG TAB PO SCH; +GABAPENTIN 300 MG CAP PO SCH; +LACTATED RINGER'S 1000ML IV SCH; +METOCLOPRAMIDE HCL 10 MG TAB PO SCH; -RXC5 PO; +SCOPOLAMINE 1.5 MG TDSY TD SCH; -TRAM-10 PO
[2017-08-02] MEDS ORDERED: EpINEphrine INJ 1MG/ML AMP 1 MG/ML AMP ONE (06:28)
[2017-08-02] MEDS ORDERED: BUPIVACAINE 0.25% 30 ML VIAL ONE (06:28)
[2017-08-02] MEDS ORDERED: BUPIVACAINE 0.5 % 5 MG/1 ML PF 10ML VIAL ONE (06:28)
[2017-08-02] MEDS ORDERED: DEXAMETHASONE SOD INJ 4 MG/ML VIAL ONE ×2 (06:28→09:48)
--- NOTE | 2017-08-02 06:55 | History & Physical Bridge Note ---
H&P Re-Evaluation Bridge Note: I have examined the patient, reviewed the History & Physical and in the interval since the performance of the History & Physical I have noted the following changes of clinical significance: No changes noted
[2017-08-02] MEDS: LACTATED RINGER'S 500 ML IV SCH ×2 (07:21→07:22)
[2017-08-02] MEDS: CHECK SCOPOLAMINE PATCH PLACEMENT SCH (07:25)
[2017-08-02] MEDS ORDERED: FENTANYL CITRATE INJ 50 MCG/1 ML 2 ML VIAL ONE (07:50)
[2017-08-02] MEDS ORDERED: PROPOFOL IV EMULSION 10 MG/ML 20 ML VIAL IV ONE (07:50)
[2017-08-02] MEDS ORDERED: LIDOCAINE HCL 2% 2 ML VIAL (20MG/ML) ONE (07:50)
[2017-08-02] MEDS ORDERED: MIDAZOLAM HCL 1 MG/ML 2ML VIAL ONE ×2 (07:50→09:12)
[2017-08-02] MEDS ORDERED: SODIUM CHLORIDE 0.9% PF 50 ML VIAL ONE (08:46)
[2017-08-02] MEDS ORDERED: BACITRACIN 50000 UNIT VIAL ONE (08:46)
[2017-08-02] MEDS ORDERED: BUPIVACAINE/EPINEPHRINE 0.25% 1:200,000 30 ML VIAL ONE (08:46)
[2017-08-02] MEDS ORDERED: BUPIVACAINE LIPOSOME 1/3% 266 MG/20 ML VIAL INFIL ONE (08:46)
[2017-08-02] MEDS ORDERED: ONDANSETRON INJ 2 MG/ML 2 ML VIAL IV PRN ×2 (09:15→11:00)
[2017-08-02] MEDS ORDERED: EpHEDrine SULFATE INJ 50 MG/ML AMP IV PRN (09:15)
[2017-08-02] MEDS ORDERED: ATROPINE SULFATE 0.1 MG/ML 5ML SYR IV PRN (09:15)
[2017-08-02] MEDS ORDERED: FENTANYL CITRATE INJ 50 MCG/1 ML 2 ML VIAL IV PRN (09:15)
[2017-08-02] MEDS ORDERED: PROMETHAZINE HCL INJ 6.25 MG in SODIUM CHLORIDE 0.9% 50ML 50 ML IV PRN (09:15)
[2017-08-02] MEDS ORDERED: ONDANSETRON INJ 2 MG/ML 2 ML VIAL ONE (09:48)
[2017-08-02] MEDS ORDERED: PHENYLEPHRINE 100MCG/ML 5ML SYR ONE (09:48)
[2017-08-02] MEDS: BUPIVACAINE LIPOSOME 266 MG, BUPIVACAINE/EPINEPHRINE INJ 50 ML, SODIUM CHLORIDE 0.9% PF... INFIL SCH ×6 (10:13→10:18)
--- NOTE | 2017-08-02 10:54 | [facility] Post Operative Brief Note ---
Immediate Operative Summary Operative Date Aug 02, 2017. Pre-Operative Diagnosis Advanced left knee medial compartment degenerative joint disease Post-Operative Diagnosis Same as preop Procedure(s) Performed Left Knee Arthroplasty Uni Compartment Surgeon Dr. Strange Rampman Surgeon(s) Ezequiel Cohen PA-C Estimated Blood Loss 10 cc Findings Left Knee DJD Fluids (cc crystalloids) 1200 cc Specimens A: left knee bone and tissue Drains None Anesthesia Spinal Complication(s) None Disposition Recovery Room / PACU
[2017-08-02] MEDS ORDERED: SILVER SULFADIAZINE 1% CR 50 GM JAR EXT PRN (11:00)
[2017-08-02] MEDS ORDERED: MECLIZINE HCL 25 MG TAB PO PRN (11:00)
[2017-08-02] MEDS ORDERED: BISACODYL 10 MG SUPP PR PRN (11:00)
[2017-08-02] MEDS ORDERED: HYDROmorphone INJ 0.5 MG/0.5 ML SYR IV PRN (11:00)
[2017-08-02] MEDS ORDERED: OXYCODONE HCL IR 5 MG TAB (IMMEDIATE RELEASE) PO PRN (11:00)
[2017-08-02] MEDS ORDERED: ZOLPIDEM TARTRATE 5 MG TAB PO PRN (11:00)
[2017-08-02] MEDS ORDERED: METOCLOPRAMIDE HCL INJ 5 MG/ML 2 ML VIAL IV PRN (11:00)
[2017-08-02] MEDS ORDERED: ALUMINUM/MAGNESIUM/SIMETH (MAALOX MAX) 30 ML UDC PO PRN (11:00)
[2017-08-02] MEDS ORDERED: MAGNESIUM HYDROXIDE SUSP 30 ML UDC PO PRN (11:00)
--- NOTE | 2017-08-02 11:38 | DIAGNOSTIC IMAGING REPORT ---
L KNEE 1 OR 2 VIEWS ROUTINE CLINICAL HISTORY: AP/LATERAL IN PACU LEFT KNEE hemiarthroplasty COMPARISON: None. DISCUSSION: Status post medial joint hemiarthroplasty. Lateral compartment appears to be intact. Surgical drains in position. Expected soft tissue postoperative change. IMPRESSION: Anatomic alignment status post medial joint hemiarthroplasty. The above report was generated using voice recognition software. It may contain grammatical, syntax or spelling errors. Electronically signed by: Tyler Lopez M.D. 08/02/2017 11:37 AM Dictated Date/Time: 08/02/2017 11:36 AM
[2017-08-02] MEDS: FERROUS GLUCONATE 324 MG TAB PO SCH ×2 (12:38→18:49)
[2017-08-02] MEDS: D5W AND 1/2NSS + 20MEQ KCL 1,000 ML IV SCH ×2 (12:38→22:30)
--- NOTE | 2017-08-02 12:57 | OPERATIVE REPORT ---
DATE OF OPERATION: 08/02/2017 SURGEON: Ramon Strange MD PROGRESS CLERK: CLARISSA Pink PREOPERATIVE DIAGNOSIS: Left knee medial compartment degenerative joint disease. POSTOPERATIVE DIAGNOSIS: Same. PROCEDURE PERFORMED: Left Biomet Cannon mobile-bearing partial knee replacement. COMPLICATIONS: None. ESTIMATED BLOOD LOSS: 10 mL TOURNIQUET TIME: 56 minutes at 300 mmHg. ANESTHESIA: Spinal with adductor canal block. DRAINS: None. SPECIMENS: Left knee sent for pathology. OPERATIVE INDICATIONS: The patient is a 67-year-old female who has had a very long history of bilateral knee pain and discomfort treated by my partner Dr. Ahuja over the years. She had failed conservative care. X-rays revealed bilateral knee medial compartment DJD. She underwent a right partial knee replacement 6 weeks ago and has done well from this and elected to proceed with left partial knee replacement. All other symptoms are medial. OPERATIVE FINDINGS: Operative findings revealed advanced left knee medial compartment DJD. She had grade 4 [id number] disease of the medial compartment. She has a fairly small knee effusion. She has a slight varus alignment to her knee. The lateral and patellofemoral compartments were fairly well preserved. OPERATIVE IMPLANTS: Operative implants consisted of: 1. Biomet Cannon small femoral component. 2. Biomet Cannon size A left knee medial tibial tray. 3. A 4-mm mobile-bearing insert. OPERATIVE PROCEDURE: The patient was taken to the operating room, identified and placed on the operating table in supine position. All contact areas were appropriately padded. IV antibiotics were provided by anesthesia team. A spinal anesthetic and adductor canal block had been provided in the holding area. Marroquin catheter was placed in sterile fashion. Left thigh tourniquet was then placed and left lower extremity was then prepped and draped in the usual sterile fashion. The left leg was elevated and exsanguinated with Esmarch and tourniquet was placed at 300 mmHg. An anterior approach to the knee was then performed through a longitudinal incision over the medial border of the patellar tendon extending from the superior pole of the patella to just medial to the tibial tubercle. Sharp dissection was carried out through the subcutaneous tissue down to the level of the extensor mechanism. A medial parapatellar arthrotomy incision was made. Some subperiosteal dissection was carried out medially. Great care was taken throughout the procedure to protect the medial collateral ligament. The fat pad was resected. I then examined the lateral compartment, which was fairly well preserved. There were some mild age-related changes. The trochlea was well preserved as well. Therefore, we elected to proceed with a partial knee replacement. Some osteophytes removed from the distal femur. The external tibial alignment jig was then placed in the anterior face of the tibia and attached to the small spoon. The tibial guide was pinned in place. A proximal tibial cut was made. The tibia was sized to a size A. Attention was then drawn to the femur. The distal femur was entered with a sharp drill. The intramedullary alverto was carefully placed. I then attached this to the small femoral template with a size for a 4 spacer. Holes were drilled for the femoral component. The posterior cutting guide was placed and a posterior cut was made. The 0 spigot was placed and the distal femur was milled. I then resected the medial meniscus. We trialed the knee and the 4 feeler gauge fit appropriately in flexion and the one in extension. We therefore placed the 3 spigot and milled the distal femur again. We trialed this again and the 4 feeler gauge fit appropriately in both flexion and extension. We elected to use these implants. All trial implants were removed. The anterior and posterior osteophyte cutting guide was then placed and used to remove the anterior and posterior prominences. The cement drill was used to drill some holes in the distal femur. The tibial tray was pinned and the keel was created for the tibial tray. We then irrigated the wound extensively. I then trialed the knee and the 4 insert fit appropriately. We then removed the trial implants. I irrigated the wound extensively. I injected with a total of 100 mL of a combination of 20 mL of Exparel, 30 mL of normal saline, 50 mL of 0.25% Marcaine with epinephrine. A single batch of Palacos G cement was mixed. A left medial size A tibial tray was then cemented in position followed by a small femoral component. All extraneous cement was removed. The knee was brought out about 30 degrees short of full extension. A 4 feeler gauge was placed. Once the cement hardened, a final cement check was then performed. We trialed the knee and I felt the 4 insert fit most appropriately. We did trial the 5, but it was just a little bit tight. Four permanent mobile-bearing insert was placed. The wound was irrigated. The tourniquet was then let down for a tourniquet time of 66 minutes. Hemostasis was assured with use of electrocautery. The extensor mechanism was then closed with #1 Vicryl suture in a [id number] fashion. The subcutaneous tissues were then closed with 2-0 Dexon suture in a buried interrupted fashion. Skin was closed with skin bradley. The leg was then cleaned and dried and a sterile dressing of Xeroform, 4 x 4's, sterile cast padding and Soto bandage were applied. The patient then transferred to the recovery room in stable condition. The patient tolerated the procedure without complications. All needle and sponge counts were correct at the end of the operation. I attest to the content of the Intraoperative Record and any orders documented therein. Any exceptions are noted below. TONID
--- NOTE | 2017-08-02 13:28 | Anesthesiology Progress Note ---
Anesthesia Post Op Note Date & Time Aug 02, 2017 at 13:28 Vital Signs Pain Intensity: 0.0 Vital Signs Past 12 Hours Date Time Temp Pulse Resp B/P (MAP) Pulse Ox O2 Delivery O2 Flow Rate FiO2 08/02/17 12:41 37.5 102 18 116/81 (93) 95 Room Air 08/02/17 12:10 75 17 120/77 (91) 96 08/02/17 11:40 96 Nasal Cannula 2.0 08/02/17 11:40 96 Nasal Cannula 2.0 08/02/17 11:40 36.7 96 18 130/83 (99) 96 Nasal Cannula 2.0 08/02/17 11:25 90 12 124/78 99 Nasal Cannula 2 08/02/17 11:15 36.8 92 14 134/69 99 Nasal Cannula 2 08/02/17 11:05 92 12 122/68 99 Nasal Cannula 2 08/02/17 10:57 36.3 96 12 109/66 100 Nasal Cannula 2 08/02/17 06:43 36.5 107 18 152/96 96 Room Air Notes Mental Status: alert / awake / arousable, participated in evaluation Pt Amnestic to Procedure: Yes Nausea / Vomiting: adequately controlled Pain: adequately controlled Airway Patency, RR, SpO2: stable & adequate BP & HR: stable & adequate Hydration State: stable & adequate Neuraxial Anesthesia: was administered, sensory block is resolving Anesthetic Complications: no major complications apparent
[2017-08-02] MEDS: ACETAMINOPHEN 500 MG TAB PO SCH ×2 (13:48→21:17)
[2017-08-02] MEDS: KETOROLAC TROMETHAMINE 15 MG/ML VIAL IV. SCH ×2 (13:48→21:18)
--- NOTE | 2017-08-02 14:43 | PROGRESS NOTE ---
DATE: 08/02/2017 SUBJECTIVE: A 67-year-old female postop from a left partial knee replacement. She is doing well. Very minor pain. No chest pain or shortness of breath. Not feeling dizzy or lightheaded. OBJECTIVE: VITAL SIGNS: Temperature 37.5. Vital signs stable. GENERAL: Physical examination reveals a pleasant elderly female. She is sitting up in bed and looks quite comfortable. LUNGS: Clear to auscultation. HEART: Regular rate and rhythm. ABDOMEN: Soft, nontender, and nondistended. EXTREMITIES: Grossly neurovascularly intact except as follows. Examination of the left lower extremity reveals the dressing to be clean, dry and intact. She can dorsiflex and plantarflex her foot appropriately. She is neurologically intact. X-RAYS: X-rays of the left knee from recovery room were reviewed. It shows a left partial knee replacement. It is a fairly rotated film. No signs of problems. ASSESSMENT: A 67-year-old female postop from a left partial knee replacement, doing well. Pain is controlled. She is neurologically intact. PLAN: 1. DVT prophylaxis including thigh high TEDs, SCDs, and aspirin twice a day. 2. PT/OT. Weightbear as tolerated. Left total knee protocol. 3. Pain control. Doing well with current pain regimen. 4. IV antibiotics x24 hours. 5. Disposition. We are going to plan to discharge her to home with some home health once adequately recovered.
[2017-08-02] MEDS: CEFAZOLIN IV 2,000 MG in SYRINGE 0 ML IV SCH (18:49)
[2017-08-02] MEDS ORDERED: SENNA 8.6 MG TAB PO SCH (21:00)
[2017-08-02] MEDS: DOCUSATE SODIUM 100 MG CAP PO SCH (21:16)
[2017-08-02] MEDS: TAPENTADOL ER 50 MG TABCR PO SCH (21:16)
[2017-08-02] MEDS: ASPIRIN 325 MG ECTAB PO SCH (21:17)
[2017-08-02] MEDS ORDERED: ASPEC325 PO (21:55)
[2017-08-02] MEDS ORDERED: ACET-24 PO (21:55)
[2017-08-02] MEDS ORDERED: RXC5 PO (21:55)
--- NOTE | 2017-08-02 21:59 | Discharge Instructions ---
Discharge Instructions Date of Service Aug 02, 2017. Admission Reason for Admission: Left Knee Degenerative Joint Disease Pre Op Testin Discharge Discharge Diagnosis / Problem: Left Partial Knee Replacement Discharge Goals Goal(s): Decrease discomfort, Improve function, Increase independence, Improve disease control, Therapeutic intervention Activity Recommendations Activity Limitations: per Instructions/Follow-up section Weightbearing Status: Left weightbearing . Instructions / Follow-Up Instructions / Follow-Up ACTIVITY RECOMMENDATIONS: Physical Therapy: * You will go to physical therapy three times each week for four to six weeks after your surgery in order to regain your knee range of motion and to retrain your knee to work properly. * It is just as important to make sure you are getting your knee perfectly straight as it is to regain your knee bend. * Taking a pain pill an hour before therapy can help you have a more productive and comfortable therapy session. Home Exercise: * You were shown a series of exercises (heel props, heel slides, etc.) in the hospital. Do these exercises three to four times each day including the exercises you were shown in physical therapy. Walking: * Get up and walk several times each day. For the first four weeks, try not to stand or walk for more than one hour at a time. If you do stand or walk for more than one hour, you will not hurt anything, but your knee and leg will likely swell. * As you feel comfortable, you may change from the walker or crutches to a cane and then to independent walking. MEDICATIONS: New Medicine: * You will likely be taking one or more of these medications: 1. Tramdol - A quick and short-acting pain medication. Take one to two tablets every four to six hours to lessen your pain. 2. Aspirin - Thins your blood to lessen the chance of forming a blood clot. * The most common side effects of pain medicine and iron are nausea and constipation. If nausea or constipation is too much of a problem or if you have any questions about your new medicines or doses, call [facility] at [phone]. We will try to help you manage these issues. VERY IMPORTANT TO READ AND REVIEW" Pain: * The immediate post-operative period after knee replacement surgery is often quite painful. * You are given a prescription for pain medicine. You should take it, as directed, when you need it, especially before physical therapy and before going to bed. Pain that interferes with sleep is very common and can last several months. * You will likely need pain medicine for the first four to six weeks. It will not stop all of the pain. The pain will lessen and as you feel better, you may change to milder pain medicine such as Tylenol. * The most common side effects of pain medicine are nausea and constipation, so don't take more than you need. SPECIAL CARE INSTRUCTIONS: TEDs/Elastic Stockings: * The white elastic stockings help limit swelling and prevent blood clots from forming in your legs. The more you wear them, the more they work. * Wear them for six weeks after knee replacement surgery and four weeks after partial knee replacement. Prevention of Infection: * Take antibiotics one hour before any dental cleaning, dental work, urological procedure, gastrointestinal procedure or any invasive surgery in order to prevent your new joint from getting infected. * You may get the antibiotics from the doctor performing the procedure or you may call our office at before and we will call in a prescription to the pharmacy of your choice. Things to Watch For: * Drainage from the incision site that occurs more than one week after your surgery. * Severely increased knee/leg pain or swelling. * Increased redness at the incision site. * Fever above 102 degrees Fahrenheit. * Unusual chest pain or shortness of breath. * Unusual pain or burning with urination. Call [facility] at with any of the above problems or if you have any questions about your medicines or recovery. FOLLOW UP VISIT: Make an appointment to see your doctor for approximately two weeks after surgery for a progress check and staple removal by calling the office at . Current Hospital Diet Patient's current hospital diet: Regular Diet Discharge Diet Recommended Diet: Regular Diet Procedures Procedures Performed: Left Knee Arthroplasty Uni Compartment Pending Studies Studies pending at discharge: no Medical Emergencies . Who to Call and When: Medical Emergencies: If at any time you feel your situation is an emergency, please call [phone] immediately. . Non-Emergent Contact Non-Emergency issues call your: Surgeon . "Provider Documentation" section prepared by Ramon Strange. . VTE Core Measure Inpt VTE Proph given/why not?: Other Anticoagulation, T.E.D. Stockings, SCD's
[2017-08-03] MEDS: KETOROLAC TROMETHAMINE 15 MG/ML VIAL IV. SCH ×2 (02:04→08:46)
[2017-08-03] MEDS: CEFAZOLIN IV 2,000 MG in SYRINGE 0 ML IV SCH (02:06)
[2017-08-03 03:40] VITALS: BP 117/73; PULSE 79; TEMP 36.6; O2SAT 95
[2017-08-03] MEDS: ACETAMINOPHEN 500 MG TAB PO SCH (06:07)
[2017-08-03 06:41] LABS: HEMATOCRIT 31.1 % (37-47); MEAN CELL VOLUME 82.9 fL (80-100); MEAN CORPUSCULAR HEMOGLOBIN 26.9 pg (25-34); MEAN CORPUSCULAR HGB CONC 32.5 g/dl (32-36); MEAN PLATELET VOLUME 9.5 fL (7.4-10.4); PLATELET COUNT 130 K/uL (130-400); RED BLOOD COUNT 3.75 M/uL (4.2-5.4); WHITE BLOOD COUNT 7.89 K/uL (4.8-10.8)
[2017-08-03 07:11] LABS: BUN/CREATININE RATIO 9.9 (10-20); CALCIUM 8.7 mg/dl (8.5-10.1); CREATININE 0.94 mg/dl (0.60-1.20); POTASSIUM 4.3 mmol/L (3.5-5.1)
[2017-08-03 08:22] VITALS: BP 132/78; PULSE 73; TEMP 36.5; O2SAT 97
[2017-08-03] MEDS: D5W AND 1/2NSS + 20MEQ KCL 1,000 ML IV SCH (08:30)
[2017-08-03] MEDS: FERROUS GLUCONATE 324 MG TAB PO SCH ×2 (08:46→11:48)
[2017-08-03] MEDS: ASPIRIN 325 MG ECTAB PO SCH (08:46)
[2017-08-03] MEDS: DOCUSATE SODIUM 100 MG CAP PO SCH (08:46)
[2017-08-03] MEDS: CHECK SCOPOLAMINE PATCH PLACEMENT SCH ×2 (08:47)
[2017-08-03] MEDS: TAPENTADOL ER 50 MG TABCR PO SCH (08:51)
[2017-08-03] MEDS ORDERED: PANTOprazole SOD 40 MG TAB PO SCH (09:00)
[2017-08-03] MEDS ORDERED: MULTIVITAMIN TAB PO SCH (09:00)
--- NOTE | 2017-08-03 09:09 | Anesthesiology Progress Note ---
Anesthesia Post Op Note Date & Time Aug 03, 2017 at 09:09 Vital Signs Pain Intensity: 3.0 Vital Signs Past 12 Hours Date Time Temp Pulse Resp B/P (MAP) Pulse Ox O2 Delivery O2 Flow Rate FiO2 08/03/17 08:22 36.5 73 18 132/78 (96) 97 Room Air 08/03/17 03:40 36.6 79 16 117/73 (88) 95 Room Air 08/03/17 00:40 Room Air 08/02/17 23:40 36.8 77 16 108/68 (81) 96 Room Air Notes Mental Status: alert / awake / arousable, participated in evaluation Pt Amnestic to Procedure: Yes Nausea / Vomiting: adequately controlled Pain: adequately controlled Airway Patency, RR, SpO2: stable & adequate BP & HR: stable & adequate Hydration State: stable & adequate Neuraxial Anesthesia: was administered, sensory block resolved Anesthetic Complications: no major complications apparent
[2017-08-03] MEDS ORDERED: TRAM-10 PO ×2 (10:49→11:13)
[2017-08-03] MEDS ORDERED: TRAMADOL HCL 50 MG TAB PO PRN (11:15)
--- NOTE | 2017-08-03 11:30 | PROGRESS NOTE ---
DATE: 08/03/2017 SUBJECTIVE: A 67-year-old female postop day #1 from a left partial knee replacement. She is doing well. Pain is controlled. She would like to change from oxycodone to tramadol. No chest pain or shortness of breath. Not feeling dizzy or lightheaded. Therapy went well today. OBJECTIVE: VITAL SIGNS: Temperature 36.5. Vital signs stable. GENERAL: Physical examination reveals a pleasant elderly female. She does walk around with a walker quite well in the room this morning. EXTREMITIES: Examination of the left leg reveals the dressing to be clean, dry and intact. Her leg is well aligned. She can do a good straight leg raise. She is neurologically intact. LABORATORY DATA: Hemoglobin 10.1. Hematocrit 31.1. Electrolytes are stable. ASSESSMENT: A 67-year-old female postop day #1 from a left partial knee replacement, doing well. PLAN: 1. DVT prophylaxis including thigh-high TEDs, SCDs, and aspirin twice a day. 2. PT/OT. Weightbear as tolerated. Left total knee protocol. 3. Pain control, doing well with current pain regimen. We will switch her from oxycodone to tramadol at her preference. 4. Mild anemia. She is asymptomatic. 5. Disposition: We are going to plan to discharge her home with some home health. We will change her bandage before discharge.
[2017-08-03 11:57] VITALS: BP 132/78; PULSE 73; TEMP 36.5; O2SAT 97
--- NOTE | 2017-08-12 08:16 | DISCHARGE SUMMARY ---
ADMITTING PHYSICIAN AND SURGEON: Ramon Strange MD. ADMITTING DIAGNOSIS: Left knee medial compartment degenerative joint disease. SURGERY PERFORMED: Left partial knee replacement. SECONDARY DIAGNOSES: Arthritis, obesity, hairy cell leukemia. CONSULTS: None obtained. HISTORY AND PHYSICAL EXAMINATION: Well documented on the patient's chart. HOSPITAL COURSE: The patient was admitted on 08/02/2017, underwent partial knee replacement. She tolerated procedure well. There were no complications. She was transferred to the PACU postoperatively and later to the orthopedic floor for further care. She was given Ancef for antibiotic prophylaxis, VICENTE stockings, SCDs and aspirin for DVT prophylaxis. Hemoglobin, hematocrit and vital signs were monitored during her hospital stay. She had some mild anemia but did not require any blood transfusions. There were no complications. By postoperative day 1, she was tolerating a general diet, pain was controlled with oral pain medicine. She was participating in physical therapy and had no signs or symptoms of deep vein thrombosis. Postop day #1, she was discharged home and set up with home health services. She was given printed discharge instructions including new prescriptions for extra strength Tylenol, aspirin 325 mg b.i.d., tramadol for pain. Continue her home medications, continue physical therapy, weightbearing as tolerated. VICENTE stockings. Follow up in 10-12 days or sooner if there are any problems or concerns.
== END 2017-08-03 13:25 | disposition home health service (06) | DRG 470 ==
LOC: C.ACU 06:25 → C.3E 07:00 → ENRESERV 11:22
PROVIDERS: ADMIT Orthopaedic Surgery Sports Medicine; ATTEND Orthopaedic Surgery Sports Medicine
PROC: 0SRD0L9 Replacement of Left Knee Joint with Medial Unicondylar Synthetic Substitute, Cemented, Open Approach (ICD-10-PCS; principal; 2017-08-02 09:05)
DX: M17.12 Unilateral primary osteoarthritis, left knee (principal); C91.41 Hairy cell leukemia, in remission; E66.9 Obesity, unspecified; Z68.35 Body mass index [BMI] 35.0-35.9, adult; Z96.651 Presence of right artificial knee joint

== ENCOUNTER → 2018-04-24 | Outpatient (CLI) | payer OTHER, BC ==
[~2018-04-24] MED LIST changes: +ACET-24 PO; -ACETAMINOPHEN 500 MG TAB PO SCH; +ASPEC325 PO; -CEFAZOLIN 2000MG IV PUSH 10 ML IV SCH; -FAMOTIDINE 20 MG TAB PO SCH; -GABAPENTIN 300 MG CAP PO SCH; -LACTATED RINGER'S 1000ML IV SCH; -METOCLOPRAMIDE HCL 10 MG TAB PO SCH; -SCOPOLAMINE 1.5 MG TDSY TD SCH; +TRAM-10 PO
[2018-04-24 12:41] LABS: HEMOGLOBIN A1C 8.4 % (4.5-5.6)
[2018-04-24 12:51] LABS: CHOLESTEROL 194 mg/dl (0-200); GLUCOSE,FASTING 216 mg/dl (70-99); LDL CHOLESTEROL (DIRECT) 122 mg/dl
== END | disposition home or self-care (01) ==
LOC: C.LAB 10:18
PROVIDERS: ATTEND Internal Medicine
DX: R73.9 Hyperglycemia, unspecified (principal); E78.5 Hyperlipidemia, unspecified